=== PATIENT | female | born 1975 | race African-American/Black ===

== ENCOUNTER 2018-04-06 13:18 | Emergency (ER) | payer OTHER ==
[~2018-04-06] VITALS: Ht 167.6 cm; Wt 72.6 kg
[2018-04-06 13:32] VITALS: BP 108/67
--- NOTE | 2018-04-06 13:43 | Emergency Room Report ---
History of Present Illness General Chief Complaint: General Complaint Source: Patient Present Illness HPI 43-year-old female presents to the emergency department complaining of acute onset 10 out of 10 in severity rectal pain while attempting to have a bowel movement approximately one hour prior to arrival. Patient reports bright red blood per rectum. Patient states that her last bowel movement was yesterday she states that she was attempting to have a bowel movement however she feels that "it doesn't fit " and causes excruciating pain. Pt. denies hx of hemorrhoids, rectal foreign bodies, constipation or . pt. reports difficulty with urination. Pt. states she has not needed to pass gas, so she is unaware if she is able to or not. Denies black tarry stools. denies abdominal distention. Allergies: Coded Allergies: No Known Allergies (Unverified , 04/06/18) Patient History Past Medical History: see triage record Past Surgical History: none Pertinent Family History: none Now: No Reviewed Nursing Documentation: PMH: Agreed; PSxH: Agreed Nursing Documentation-PMH Past Medical History: No History, Except For Review of Systems All Other Systems: negative except mentioned in HPI Physical Exam Vital Signs Date Time Temp Pulse Resp B/P (MAP) Pulse Ox O2 Delivery O2 Flow Rate FiO2 04/06/18 13:16 98.2 86 16 108/67 97 Room Air 98.2 Sp02 EP Interpretation: reviewed, normal General Appearance: alert, GCS 15, non-toxic, mild distress Head: normocephalic, atraumatic ENT: hearing grossly normal, normal voice Neck: full range of motion Respiratory: lungs clear, normal breath sounds, speaking full sentences Cardiovascular #1: regular rate, rhythm Gastrointestinal: normal bowel sounds, non tender, soft, non-distended, no guarding Rectal: hemorrhoids - in the 6 O'clock position with scant bleeding noted. , tenderness Musculoskeletal: back normal, gait/station normal, normal range of motion, non- tender Neurologic: alert, oriented x3, responsive, motor strength/tone normal, sensory intact, speech normal, grossly normal Psychiatric: judgement/insight normal Skin: normal color, no rash, warm/dry, well hydrated, other - small tear on the hemorrhoid in the 6 o'clock position of the rectum. Medical Decision Making PA Attestation Dr. lyons is my supervising Physician whom patient management has been discussed with. Diagnostic Impression: Primary Impression: Acute hemorrhoid Additional Impression: Bleeding external hemorrhoids ER Course 43-year-old female presents to the emergency department complaining of acute onset 10 out of 10 in severity rectal pain while attempting to have a bowel movement approximately one hour prior to arrival. Patient reports bright red blood per rectum. Patient states that her last bowel movement was yesterday she states that she was attempting to have a bowel movement however she feels that "it doesn't fit " and causes excruciating pain. Pt. denies hx of hemorrhoids, rectal foreign bodies, constipation or . pt. reports difficulty with urination. Pt. states she has not needed to pass gas, so she is unaware if she is able to or not. Denies black tarry stools. denies abdominal distention. Ddx considered but are not limited to constipation ,SBO, hemorrhoid, rectal tear , rectal ca just to name a few. Vital signs: are WNL, pt. is afebrile H&PE are most consistent with constipation. bowl sounds are normo active. ORDERS: Abdominal KUB: nonspecific gas pattern -Urine HCG: Negative ED INTERVENTIONS: - Colace PO -Lactulose PO -Lidocaine TP to rectum. DISCHARGE: At this time pt. is stable for d/c to home. Will provide printed patient care instructions, and any necessary prescriptions. Care plan and follow up instructions have been discussed with the patient prior to discharge. Labs Test 04/06/18 13:45 Urine HCG, Qualitative Negative (NEGATIVE) Other X-Ray Diagnostic Results Other X-Ray Diagnostic Results : X-Ray ordered: KUB # of Views/Limited Vs Complete: 2 View Indication: Pain EP Interpretation: Yes PA Xray: Interpretation reviewed, by supervising MD, and agrees with findings. Interpretation: no dislocation, no soft tissue swelling, nonspecific bowel gas Impression: No acute disease Electronically Signed by: Dr. lyons is my supervising Physician whom patient management has been Last Vital Signs Date Time Temp Pulse Resp B/P (MAP) Pulse Ox O2 Delivery O2 Flow Rate FiO2 04/06/18 13:32 98.2 86 16 108/67 97 Room Air 98.2 Disposition: HOME, SELF-CARE Condition: Stable Scripts Lactulose (LACTULOSE*) 20 Gm/30 Ml Solution 30 ML ORAL BID, #150 ML 0 Refills Prov: Lis Auguste 04/06/18 Docusate Sodium* (COLACE*) 100 Mg Capsule 100 MG ORAL THREE TIMES A DAY, #30 CAP Prov: Lis Auguste 04/06/18 Lidocaine HCL 2% Jelly* (Lidocaine Jelly 2%*) 5 Ml Jel.pf.brooke 5 ML RC Q6HR for pain, #5 ML Prov: Lis Auguste 04/06/18 Hydrocortisone Hc 2.5% Cream (ANUSOL-HC 2.5% CREAM) Y Cr 1 APPLIC RC BID, #30 GM Prov: Lis Auguste 04/06/18 Departure Forms: Return to Work Return to Work Date: Apr 10, 2018 Work Restrictions: None Other Restrictions: May return sooner if symptoms have resolved. Return to Full Activity: Apr 10, 2018 Patient Instructions: Hemorrhoids Additional Instructions: Take medications as directed. * increase fiber in your diet to help prevent reoccurrence in the future. Follow up with a Primary Care Provider in 3-5 days, even if your symptoms have resolved. --Please review list of primary care clinics, if you do not already have a primary care provider Return sooner to ED if new symptoms occur, or current symptoms become worse. - Please note that this Emergency Department Report was dictated using [employer] technology software, occasionally this can lead to erroneous entry secondary to interpretation by the dictation equipment. Lis Auguste Apr 06, 2018 13:43
[2018-04-06] MEDS ORDERED: Lidocaine HCl 2% Jelly 5ml Tube TOPIC ONE (14:15)
[2018-04-06] MEDS ORDERED: Lactulose 20gm/30ml UDC ORAL ONE ×2 (14:15→16:15)
[2018-04-06] MEDS ORDERED: Docusate 100mg cap ORAL ONE (14:15)
--- NOTE | 2018-04-06 14:52 | Diagnostic Imaging Report ---
Indication: Abdominal pain Comparison: None Single view of the abdomen obtained Findings: Bowel gas pattern is nonspecific. No mass, ectopic calcifications, or abnormal gas collections are identified. The bones are unremarkable. Impression: No acute findings
[2018-04-06 16:10] VITALS: BP 116/72
[2018-04-06] MEDS ORDERED: LACTULOSE20 GM/301 ORAL (16:20)
[2018-04-06] MEDS ORDERED: LD2JL30 RC (16:20)
[2018-04-06] MEDS ORDERED: COLACE100 MG ORAL (16:20)
[2018-04-06] MEDS ORDERED: ANUSOL-HC30 GM RC (16:20)
[2018-04-06 16:30] VITALS: BP 116/72
== END 2018-04-06 16:30 | disposition home or self-care (01) ==
LOC: EDBD 13:18 → EMR 13:50
DX: K64.4 Residual hemorrhoidal skin tags (principal); K62.89 Other specified diseases of anus and rectum
CPT/HCPCS: 74018; 81025; 99283